=== PATIENT | male | born 1970 | race American Indian/Alaskan Native ===

== ENCOUNTER 2017-09-15 09:33 | Inpatient (IN) | payer MEDICAID, OTHER ==
[2017-09-15 09:33] VITALS: BMI 24.7
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
[2017-09-15] MEDS ORDERED: Sodium Chloride 0.9% 1,000 ML IV ONE (10:41)
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
[2017-09-15 10:59] LABS: BASO % 0.9 % (0.0-2.0); EOS # 0.1 K/uL (0.0-0.7); EOS % 2.4 % (0.0-4.0); HEMOGLOBIN 14.6 g/dL (12.0-18.0); LYMPH # 1.7 K/uL (1.0-4.3); LYMPH % 39.6 % (20.0-40.0); MEAN CELL VOLUME 89.6 fL (80.0-94.0); MEAN CORPUSCULAR HEMOGLOBIN 31.3 pg (27.0-31.0); MEAN CORPUSCULAR HGB CONC 34.9 g/dL (33.0-37.0); MEAN PLATELET VOLUME 8.2 fL (7.2-11.7); MONO # 0.4 K/uL (0.0-0.8); MONO % 9.9 % (0.0-10.0); NEUT # 2.1 K/uL (1.8-7.0); NEUT % 47.2 % (50.0-75.0); NRBC % 0.1 % (0.0-2.0); RBC 4.66 Mil/uL (4.40-5.90); RED CELL DISTRIBUTION WIDTH 13.2 % (11.5-14.5); WHITE BLOOD COUNT 4.4 K/uL (4.8-10.8)
[2017-09-15 11:18] LABS: ALB/GLOB RATIO 1.2 (1.0-2.1); ALBUMIN 3.9 g/dL (3.5-5.0); ALT/SGPT 26 U/L (21-72); AST/SGOT 23 U/L (17-59); BLOOD UREA NITROGEN 17 mg/dL (9-20); CALCIUM 8.6 mg/dl (8.6-10.4); GFR AFRICAN-AMERICAN > 60; GFR NON-AFRICAN AMERICAN > 60
[2017-09-15 11:19] LABS: PROTHROMBIN TIME 11.5 SECONDS (9.7-12.2)
--- NOTE | 2017-09-15 12:28 | RAD ---
HISTORY: pre-op COMPARISON: None available. TECHNIQUE: Chest PA and lateral FINDINGS: LUNGS: No focal consolidation. Please note that chest x-ray has limited sensitivity for the detection of pulmonary masses. PLEURA: No significant pleural effusion identified. No definite pneumothorax . CARDIOVASCULAR: Heart size appears within normal limits. OSSEOUS STRUCTURES: Mild degenerative changes of the spine. VISUALIZED UPPER ABDOMEN: Unremarkable. OTHER FINDINGS: None. IMPRESSION: No focal consolidation, significant pleural effusion, or definite pneumothorax identified.
[2017-09-15] MEDS ORDERED: Doxycycline 100 mg Inj ONE (12:34)
[2017-09-15] MEDS ORDERED: Bupivacaine HCl 0.25% PF (10 ml) Inj ONE ×2 (12:35→12:58)
[2017-09-15] MEDS ORDERED: Propofol 10 mg/ml Inj (20 ML) ONE ×2 (12:41→12:59)
[2017-09-15] MEDS ORDERED: Midazolam 2 MG/2 ML VIAL ONE (12:57)
[2017-09-15] MEDS ORDERED: ePHEDrine 50 mg/ml Inj ONE (13:44)
[2017-09-15] MEDS ORDERED: Lidocaine Hydrochloride 5 ML INJ ONE (13:45)
[2017-09-15] MEDS ORDERED: Neostigmine Methylsulfate 3mg/3ml Syringe IV ONE (13:55)
[2017-09-15] MEDS ORDERED: Lactated Ringer's 1,000 ML IV ONE (14:09)
[2017-09-15] MEDS: Oxycodone/Acetaminophen 5/325 mg Tab PO PRN (17:10)
[2017-09-15 18:18] VITALS: RESP 18
--- NOTE | 2017-09-15 23:42 | OP ---
PROCEDURE DATE: 09/15/2017 PREOPERATIVE DIAGNOSIS: Bilateral incarcerated inguinal hernia. POSTOPERATIVE DIAGNOSIS: Bilateral incarcerated inguinal hernia. PROCEDURE: Repair of bilateral incarcerated inguinal hernia using a mesh. SURGEON: Kumar Baird MD ANESTHESIA: General. ESTIMATED BLOOD LOSS: 40 mL. POSTOPERATIVE CONDITION: Stable. INDICATIONS FOR SURGERY: This is a 47-year-old male seen in the emergency room today with bilateral incarcerated inguinal hernias, taken to the OR for urgent repair. GROSS FINDINGS: He had bilateral incarcerated indirect inguinal hernias. 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 There were no other abnormal findings. DESCRIPTION OF PROCEDURE: The patient was taken to the operating room. General anesthesia was administered and both groins were prepped and draped. Attention was first turned to the right side which was a larger hernia. A standard right inguinal incision was made and the external oblique aponeurosis was opened. The spermatic cord was looped with a Jackson drain. The hernia sac within the spinal cord was dissected free and isolated. A large cord lipoma was also dissected free and transected at base and delivered as a specimen. The hernia sac was inverted and a extra large ProLoop hernia plug was inserted and sutured in place with interrupted 2-0 Prolene suture. Bleeding from the epigastric artery was repaired. The wound was irrigated with copious amount of saline solution and was closed in layers with Vicryl. A tissue flap closure was performed in order to close the space. The above was essentially repeated on the left side. The patient tolerated the procedure well, returned to recovery room in stable condition. Kumar Baird MD
[2017-09-16 00:38] VITALS: BP 113/60; TEMP 98
[2017-09-16] MEDS: Oxycodone/Acetaminophen 5/325 mg Tab PO PRN ×2 (04:34→12:22)
[2017-09-16 08:03] LABS: BASO % 0.3 % (0.0-2.0); EOS # 0.1 K/uL (0.0-0.7); EOS % 0.8 % (0.0-4.0); HEMOGLOBIN 13.5 g/dL (12.0-18.0); LYMPH # 1.6 K/uL (1.0-4.3); LYMPH % 19.8 % (20.0-40.0); MEAN CELL VOLUME 89.5 fL (80.0-94.0); MEAN CORPUSCULAR HEMOGLOBIN 31.5 pg (27.0-31.0); MEAN CORPUSCULAR HGB CONC 35.2 g/dL (33.0-37.0); MEAN PLATELET VOLUME 8.4 fL (7.2-11.7); MONO # 0.7 K/uL (0.0-0.8); MONO % 8.9 % (0.0-10.0); NEUT # 5.8 K/uL (1.8-7.0); NEUT % 70.2 % (50.0-75.0); NRBC % 0.1 % (0.0-2.0); RBC 4.27 Mil/uL (4.40-5.90); RED CELL DISTRIBUTION WIDTH 12.9 % (11.5-14.5)
[2017-09-16 08:06] LABS: WHITE BLOOD COUNT 8.3 K/uL (4.8-10.8)
[2017-09-16 08:19] LABS: BLOOD UREA NITROGEN 11 mg/dL (9-20); CALCIUM 8.5 mg/dl (8.6-10.4); GFR AFRICAN-AMERICAN > 60; GFR NON-AFRICAN AMERICAN > 60
[2017-09-16] MEDS ORDERED: Enoxaparin 30 mg Syringe SC SCH (10:00)
--- NOTE | 2017-09-16 10:48 | CP.PCM.PN ---
Subjective - Date & Time of Evaluation Date of Evaluation: 09/16/17 Time of Evaluation: 10:48 - Subjective Subjective: PATIENT WAS ADMITTED FOR INGUNAL HERNIA; AAOX 3 ON ROOM AIR; DENIES CHEST PAIN; SOB NAUSEA OR VOMITING; ABLE TO TOLERATED REGULAR DIET COMPLAINING OF ABD DISCOMFORT WHICH IS NORMAL POST PROCEDURE NO SIGN OF DISTRESS NOTED Objective - Vital Signs/Intake and Output Vital Signs (last 24 hours): Temp Pulse Resp BP Pulse Ox 98 F 76 18 113/60 96 09/16/17 00:36 09/16/17 00:36 09/16/17 00:36 09/16/17 00:36 09/16/17 00:36 Intake and Output: 09/16/17 09/16/17 06:59 18:59 Intake Total 100 Output Total 300 Balance -200 - Medications Medications: Current Medications Enoxaparin Sodium (Lovenox) 30 mg SC Q12 JONATAN Doxycycline Hyclate 100 mg/ (Sodium Chloride) 100 mls @ 100 mls/hr IVPB Q12H JONATAN Last Admin: 09/16/17 00:28 Dose: 100 mls/hr Oxycodone/Acetaminophen (Percocet 5/325 Mg Tab) 1 tab PO Q4H PRN PRN Reason: Pain, moderate (4-7) Stop: 09/18/17 14:33 Last Admin: 09/16/17 04:34 Dose: 1 tab - Labs Labs: 09/16/17 07:51 09/16/17 07:51 PT 11.5 SECONDS (9.7-12.2) 09/15/17 10:53 INR 1.0 09/15/17 10:53 APTT 28 SECONDS (21-34) 09/15/17 10:53 Assessment and Plan - Assessment and Plan (Free Text) Assessment: PATIENT IS SEEN AND EXAMINED AT THE BEDSIDE LUNG SOUND CLEAR AND DRESSING DRY AND INTACT PATIENT HAD PHYSICAL THERAPY DONE AND PT RECOMMEND ROLLING WALKER WHICH WAS PROVIDED TO PATIENT BEFORE DC LABS WORK IS WNL AND NO SIGN OF BLEEDING NOTED DISCUSS WITH RIKY WHO CLEAR PATIENT OR DC FOLLOW UP WITH DR LAN IN A WEEK AT HIS OFFICE ---CALL FOR APPOINTMENT CONTINUE ALL YOUR HOME MEDICATION NWE PRESCRIPTION GIVEN PERCOCET BY MOUTH EVERY 4 HOUR FOR PAIN FOR 3 DAYS ACTIVITY TOLERATED Do not get the bandage or wound wet for 48 hours. If strips of tape were used to close your incision, don't pull them off. Let them fall off on their own. Remove any gauze bandage in 48 hours. Wash your incision with mild soap and water. Pat it dry. CALL DR LAN OR GO TO THE EMERGENCY ROOM IF SYMPTOMS RETURN OR WORSENING DISCUSS WITH PATIENT WHO AGREE AND VERBALIZED UNDERSTANDING
--- NOTE | 2017-09-16 11:53 | CARD ---
APPROVED REPORT EKG Measurement Heart [id number] [id number] <Conclusion> Sinus bradycardia Incomplete right bundle branch block Borderline ECG
[2017-09-16 12:37] VITALS: PULSE 83
[2017-09-16 18:21] VITALS: O2SAT 97
== END 2017-09-16 15:55 | disposition home or self-care (01) | DRG 352 ==
LOC: C.ER 09:33 → C.9E 11:09 → C.5S 18:01
PROVIDERS: ADMIT Surgery; ATTEND Surgery
PROC: 0VBH0ZZ Excision of Bilateral Spermatic Cords, Open Approach (ICD-10-PCS; 2017-09-15)
PROC: 0YUA0JZ Supplement Bilateral Inguinal Region with Synthetic Substitute, Open Approach (ICD-10-PCS; principal; 2017-09-15 12:15)
DX: K40.00 Bilateral inguinal hernia, with obstruction, without gangrene, not specified as recurrent (principal); D17.6 Benign lipomatous neoplasm of spermatic cord